=== PATIENT | female | born 1970 | race Caucasian/White ===

== ENCOUNTER 2020-03-06 13:09 | Emergency (ER) | payer OTHER, SELFPAY ==
[2020-03-06 13:15] VITALS: BP 105/62; PULSE 68; RESP 18; TEMP 36.8; O2SAT 99
--- NOTE | 2020-03-06 13:21 | ED.FEMALEGU ---
HPI - Female Genitourinary General Chief complaint: Urogenital-Female Stated complaint: burning/pain with urination Time Seen by Provider: 03/06/20 13:22 Source: patient and RN notes reviewed History of Present Illness HPI Narrative: Patient is a 50-year-old female who presents the urgent care with complaints of a possible UTI. Patient states that since yesterday she is having dysuria and pain with urination. Patient denies any blood in the urine, abdominal pain, nausea, vomiting, fever. Patient states that her last UTI was approximately 2 years ago. States that she has been using ibuprofen for the pain. No other acute complaints. No acute distress noted. Patient aware of the plan of care. Some parts of this dictation were generated by voice recognition software and may contain typographical and/or grammatical inaccuracies. Related Data Home Medications Medication Instructions Recorded Confirmed fluoxetine [Prozac] 20 mg PO DAILY 06/21/19 06/21/19 montelukast [Singulair] 10 mg PO DAILY 06/21/19 06/21/19 Allergies Allergy/AdvReac Type Severity Reaction Status Date / Time No Known Allergies Allergy Verified 02/10/19 13:53 Review of Systems Review of Systems: Narrative: CONSTITUTIONAL: Denies fever, chills, or sweats. EYES: Denies visual changes, redness, or discharge. ENT: Denies rhinorrhea, congestion, sore throat, or otalgia. CARDIOVASCULAR: Denies chest pain, palpitations, or edema. RESPIRATORY: Denies cough or dyspnea. GASTROINTESTINAL: Denies abdominal pain, nausea, vomiting, or diarrhea. GENITOURINARY: Reports of dysuria and pain with urination SKIN: Denies rash or itching. MUSCULOSKELETAL: Denies back pain, joint pain, or myalgia. NEUROLOGIC: Denies headache, numbness, or weakness. All other systems reviewed are negative, except as documented in HPI. [facility] Past Medical History Medical History (Updated 03/06/20 @ 13:31 by DIPTI Diaz) Acute gallstone pancreatitis Asthma PMS (premenstrual syndrome) Seasonal allergies Surgical History Surgical History (Updated 06/21/19 @ 15:07 by Negrita Keating NP) H/O: hysterectomy History of endometrial ablation Hx of cholecystectomy Social History Social History (Updated 06/21/19 @ 15:15 by Negrita Keating NP) Smoking status: Former smoker Tobacco type: cigarettes Gender identity (if verbalized by the patient): Female Comments At the time of my signature, I reviewed and agree with the nursing past medical, surgical, social, and family history. There is no relevant family history pertinent to the patient complaint. Exam Narrative: Exam Narrative: GENERAL: This is a well-nourished, well-developed patient, in no apparent distress. HEAD: normocephalic, atraumatic. EYES: PERRL. Sclera clear/white. Vision is grossly intact. EARS: External ears normal NOSE: External nose normal with no obvious nasal discharge, nares without redness, no rhinorrhea. THROAT: Mucous membranes moist NECK: Neck supple GASTROINTESTINAL: Abdomen soft, non-tender, nondistended. SKIN: warm, intact with no suspicious lesions or rash, good texture and turgor. NEURO: awake, alert, and oriented to person, place and time. There were no obvious focal neurologic abnormalities. EXTREMITIES: No clubbing, cyanosis, or edema. BACK: Negative bilateral CVA tenderness Course Vital Signs Vital signs: Vital Signs Temperature 98.3 F 03/06/20 13:15 Pulse Rate 68 03/06/20 13:15 Respiratory Rate 18 03/06/20 13:15 Blood Pressure 105/62 03/06/20 13:15 Pulse Oximetry 99 03/06/20 13:15 Temperature 98.3 F 03/06/20 13:15 Pulse Rate 68 03/06/20 13:15 Respiratory Rate 18 03/06/20 13:15 Blood Pressure 105/62 03/06/20 13:15 Pulse Oximetry 99 03/06/20 13:15 Reviewed MDM - Female Genitourinary MDM Narrative Medical decision making narrative: Reviewed lab results with the patient. She is aware that urine analysis was indicative of a urinary tr
== END 2020-03-06 13:45 | disposition home or self-care (01) ==
PROVIDERS: Emergency Provider Nurse Practitioner Family; PCP Emergency Medicine
DX: N39.0 Urinary tract infection, site not specified (principal); J45.909 Unspecified asthma, uncomplicated; Z87.891 Personal history of nicotine dependence
CPT/HCPCS: 81003; 87077; 87086; 87088; 87186; 99213; G0463

== ENCOUNTER 2020-06-20 09:55 | Emergency (ER) | payer OTHER, SELFPAY ==
[2020-06-20 10:09] VITALS: BP 101/71; PULSE 72; RESP 16; TEMP 36.4; O2SAT 96
--- NOTE | 2020-06-20 10:24 | ED.URI ---
HPI - URI/Sore Throat General Chief Complaint: Upper Respiratory Infection Stated Complaint: Poss Bronchitis Time Seen by Provider: 06/20/20 10:23 Source: patient and RN notes reviewed History of Present Illness HPI Narrative: Patient is a 50-year-old female who presents the urgent care with complaint of possible bronchitis. Patient states that she does have a history of bronchitis but has not been diagnosed in the last year. Patient states she had Covid in April and has not had any post Covid issues. Patient states that her symptoms started approximately 3 weeks ago with sinus drainage, dry cough and now some audible wheezing. Patient denies of any fever, shortness of breath or chest pain. States that she has been using Mucinex, cough suppressant, Mcneil and Sudafed. Patient states that in the past she has gotten relief with steroids and an inhaler. No other acute complaints. No acute distress noted. Patient aware of the plan of care. Some parts of this dictation were generated by voice recognition software and may contain typographical and/or grammatical inaccuracies. Related Data Home Medications Medication Instructions Recorded Confirmed fluoxetine [Prozac] 20 mg PO DAILY 06/21/19 06/20/20 Allergies Allergy/AdvReac Type Severity Reaction Status Date / Time No Known Allergies Allergy Verified 06/20/20 10:41 Review of Systems Review of Systems: Narrative: CONSTITUTIONAL: Denies fever, chills, or sweats. EYES: Denies visual changes, redness, or discharge. ENT: Reports of sinus drainage and mild sinus pressure CARDIOVASCULAR: Denies chest pain, palpitations, or edema. RESPIRATORY: Reports of dry intermittent productive cough without dyspnea. Reports of intermittent audible wheezing especially at night GASTROINTESTINAL: Denies abdominal pain, nausea, vomiting, or diarrhea. GENITOURINARY: Denies dysuria or hematuria. SKIN: Denies rash or itching. MUSCULOSKELETAL: Denies back pain, joint pain, or myalgia. NEUROLOGIC: Denies headache, numbness, or weakness. All other systems reviewed are negative, except as documented in HPI. [facility] Past Medical History Medical History (Updated 06/20/20 @ 10:34 by DIPTI Diaz) Acute gallstone pancreatitis Asthma PMS (premenstrual syndrome) Seasonal allergies Surgical History Surgical History (Updated 06/21/19 @ 15:07 by Negrita Keating NP) H/O: hysterectomy History of endometrial ablation Hx of cholecystectomy Social History Social History (Updated 06/21/19 @ 15:15 by Negrita Keating NP) Smoking status: Former smoker Tobacco type: cigarettes Gender identity (if verbalized by the patient): Female Comments At the time of my signature, I reviewed and agree with the nursing past medical, surgical, social, and family history. There is no relevant family history pertinent to the patient complaint. Exam Narrative: Exam Narrative: GENERAL: This is a well-nourished, well-developed patient, in no apparent distress. HEAD: normocephalic, atraumatic. EYES: PERRL. Sclera clear/white. Vision is grossly intact. EARS: External ears normal, auditory canals clear and without drainage, TMs normal without perforation. Hearing grossly intact. NOSE: External nose normal with no obvious nasal discharge, nares without redness, no rhinorrhea. THROAT: Mucous membranes moist, posterior pharynx clear. Moderate postnasal drainage NECK: Neck supple, non-tender without lymphadenopathy CARDIOVASCULAR: Regular rate and rhythm without murmurs, gallops, or rubs. RESPIRATORY: Mild bilateral expiratory wheezes intermittently. Lung sounds consistent throughout without any diminished lung sounds. SKIN: warm, intact with no suspicious lesions or rash, good texture and turgor. NEURO: awake, alert, and oriented to person, place and time. There were no obvious focal neurologic abnormalities. EXTREMITIES: No clubbing, cyanosis, or edema. Course Vital Signs Vital signs: Vital Sig
== END 2020-06-20 10:42 | disposition home or self-care (01) ==
PROVIDERS: Emergency Provider Nurse Practitioner Family; PCP Emergency Medicine
DX: J40 Bronchitis, not specified as acute or chronic (principal); J45.909 Unspecified asthma, uncomplicated; Z87.891 Personal history of nicotine dependence; Z86.16 Personal history of COVID-19
CPT/HCPCS: 99213; G0463